=== PATIENT | female | born 1995 | race Two or more races ===

== ENCOUNTER 2017-07-08 08:05 | Emergency (ER) | payer OTHER ==
[2017-07-08 08:30] VITALS: BP 128/73
[2017-07-08] MEDS ORDERED: MORPHINE SULFATE 10 MG/ML INJ IV ONE ×2 (08:30→10:54)
[2017-07-08] MEDS ORDERED: NORMAL SALINE 1000 ML 1,000 ML IV ONE ×2 (08:30)
[2017-07-08] MEDS ORDERED: ONDANSETRON HCL INJ/PF 4 MG/2 ML SDV IV ONE (08:30)
[2017-07-08 08:52] LABS: ABSOLUTE EOSINOPHILS # (AUTO) 0.1 10^3/uL (0.0-0.6); ABSOLUTE LYMPHOCYTES (AUTO) 1.2 10^3/uL (0.5-4.7); ABSOLUTE MONOCYTES (AUTO) 0.6 10^3/uL (0.1-1.4); ABSOLUTE NEUT (AUTO) 6.7 10^3/uL (1.7-8.2); BASOPHILS % (AUTO) 0.3 % (0-2); EOSINOPHILS % (AUTO) 1.2 % (0-6); HEMATOCRIT 40.3 % (36.0-47.0); HEMOGLOBIN 13.9 g/dL (12.0-15.5); HGB HCT DIFFERENCE 1.4; LYMPHOCYTES % (AUTO) 14.2 % (13-45); MEAN CORPUSCULAR HEMOGLOBIN 29.4 pg (27.0-33.4); MEAN CORPUSCULAR HGB CONC 34.6 g/dL (32.0-36.0); MEAN CORPUSCULAR VOLUME 85 fl (80-97); MONOCYTES % (AUTO) 6.4 % (3-13); RED BLOOD COUNT 4.73 10^6/uL (3.72-5.28); SEGMENTED NEUTROPHILS % (AUTO) 77.9 % (42-78); WHITE BLOOD COUNT 8.7 10^3/uL (4.0-10.5)
[2017-07-08 09:00] LABS: PARTIAL THROMBOPLASTIN TIME 25.4 SEC (23.5-35.8); PROTHROMBIN TIME 12.8 SEC (11.4-15.4)
--- NOTE | 2017-07-08 09:00 | EKG REPORT ---
SEVERITY:- NORMAL ECG - SINUS RHYTHM : Confirmed by: Lexi Jennings MD 08-Jul-2017 08:59:13
[2017-07-08 09:21] LABS: ALANINE AMINOTRANSFERASE 74 U/L (9-52); ALBUMIN 4.4 g/dL (3.5-5.0); ALKALINE PHOSPHATASE 89 U/L (38-126); ANION GAP 10 (5-19); ASPARTATE AMINO TRANSFERASE 72 U/L (14-36); BILIRUBIN,DIRECT 0.4 mg/dL (0.0-0.4); BILIRUBIN,TOTAL 0.9 mg/dL (0.2-1.3); BLOOD UREA NITROGEN 15 mg/dL (7-20); CALCIUM 9.8 mg/dL (8.4-10.2); CARBON DIOXIDE 27 mmol/L (22-30); CHLORIDE 101 mmol/L (98-107); GLUCOSE 106 mg/dL (75-110); LIPASE 71.7 U/L (23-300); POTASSIUM 3.8 mmol/L (3.6-5.0); TOTAL PROTEIN 7.3 g/dL (6.3-8.2)
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
[2017-07-08] MEDS ORDERED: FLUCONAZOLE 100 MG TABLET PO ONE (11:56)
== END 2017-07-08 12:26 | disposition home or self-care (01) ==
LOC: ER 08:05
DX: T14.8XXA Other injury of unspecified body region, initial encounter (principal); S70.211A Abrasion, right hip, initial encounter; S70.212A Abrasion, left hip, initial encounter; S50.311A Abrasion of right elbow, initial encounter; V47.5XXA Car driver injured in collision with fixed or stationary object in traffic accident, initial encounter; D18.03 Hemangioma of intra-abdominal structures; R10.31 Right lower quadrant pain; J98.4 Other disorders of lung; M25.551 Pain in right hip; R21 Rash and other nonspecific skin eruption; Z87.01 Personal history of pneumonia (recurrent)
CPT/HCPCS: 93005; 96376; 99284; 96361; 96374; 96375; 36415; 83690; 84703; 85025; 85610; 85730; 80053; 73610; 70450; 71260; 74177; 93010; J2270; J2405; J7030